=== PATIENT | female | born 1960 | race Caucasian/White ===

== ENCOUNTER 2023-07-21 11:00 | Outpatient (CLI) | payer BC | END 2023-07-21 11:01 | disposition home or self-care (01) | LOC: CSHRAD 11:00 | PROVIDERS: ATTEND Internal Medicine Rheumatology | DX: M46.1 Sacroiliitis, not elsewhere classified (principal); G89.4 Chronic pain syndrome; M25.50 Pain in unspecified joint | CPT/HCPCS: 72202 ==